=== PATIENT | male | born 1955 | race Two or more races ===

== ENCOUNTER → 2020-08-01 | Outpatient (CLI) | payer OTHER | LOC: M LABSMTC 16:00 | PROVIDERS: ATTEND Pediatrics | DX: Z11.59 Encounter for screening for other viral diseases (principal) ==

== ENCOUNTER → 2020-08-31 | Outpatient (CLI) | payer OTHER ==
[~2020-08-31] MED LIST: PROHANCE 279.3MG/ML 15ML VIAL As Ordered ONE; PROHANCE 279.3MG/ML 5ML VIAL As Ordered ONE
--- NOTE | 2020-08-31 11:28 | REP ---
INDICATION: ELEVATED PROSTATE SPECIFIC ANTIGEN. COMPARISON: None TECHNIQUE: Using a phased array surface coil, small ouvoi-va-wvan imaging was acquired using T2 weighted scans in the axial, coronal, and sagittal imaging planes. Small kqxmo-ae-fcpm diffusion-weighted sequences are acquired. Small oxavp-zi-bton axial T1 weighted scans are acquired dynamically before and after the intravenous administration of 15 mL of ProHance. Imaging is reviewed using the [employer] computer-aided detection system. FINDINGS: No lymphadenopathy or pelvic mass is seen. There is no free fluid. No bone lesion is seen. Prostate measures 4.9 x 4.1 x 4.3 cm. Total volume is 43.15 cc. Two regions of interest are identified in the prostate. In the right transitional zone extending from the base to the apical region there is an area which is predominantly low signal on T2 and diffusion-weighted images with diffuse type 3 enhancement. There is somewhat ill-defined. The area measures 3.1 x 1.4 x 2.4 cm for total volume of 5.2 cc. Overall level of suspicion is 3/5 with clinically significant cancer equivocal. In the left transitional zone extending from the base to the apical region there is a geographic area of predominantly low signal on T2 and diffusion weighted images which is somewhat ill-defined. There is diffuse type 3 enhancement throughout the region of interest. It measures 2.8 x 1.5 x 2.8 cm for total volume of 7.27 cc. Overall level of suspicion is 3/5, with clinically significant cancer equivocal. IMPRESSION: Two regions of interest identified in the prostate for potential MR-ultrasound fusion biopsy. Both regions demonstrate characteristics for which suspicion of clinically significant cancer is equivocal. <Electronically signed by Wilfred Hartley > 08/31/20 [id number]
== END ==
LOC: M RAD 08:37
PROVIDERS: ATTEND Physician Assistant
DX: R97.20 Elevated prostate specific antigen [PSA] (principal)
CPT/HCPCS: 72197; A9576

== ENCOUNTER → 2023-01-03 | Outpatient (CLI) | payer MEDICARE, OTHER ==
[~2023-01-03] MED LIST changes: -PROHANCE 279.3MG/ML 15ML VIAL As Ordered ONE; +PROHANCE 279.3MG/ML 15ML VIAL ONE; -PROHANCE 279.3MG/ML 5ML VIAL As Ordered ONE
== END ==
LOC: M PLAIMG 10:45
PROVIDERS: ATTEND Specialist
DX: R97.20 Elevated prostate specific antigen [PSA] (principal)
CPT/HCPCS: 72197; A9576

== ENCOUNTER → 2023-07-31 | Outpatient (CLI) | payer MEDICARE, OTHER | LOC: M PLAIMG 08:03 | PROVIDERS: ATTEND Physician Assistant | DX: R97.20 Elevated prostate specific antigen [PSA] (principal) | CPT/HCPCS: 72197; A9576 ==